=== PATIENT | male | born 1995 | race Caucasian/White ===

== ENCOUNTER 2018-06-05 19:09 | Inpatient (IN) | payer MEDICAID, SELFPAY ==
[2018-06-05 19:11] VITALS: BP 123/70; PULSE 90; RESP 16; TEMP 36.7; O2SAT 98; BMI 30.4
--- NOTE | 2018-06-05 19:59 | EKG12_ITS ---
Test Reason : SUBSTANCE ABUSE Blood Pressure : / mmHG Vent. Rate : 075 BPM Atrial Rate : 075 BPM P-R Int : 144 ms QRS Dur : 094 ms QT Int : 348 ms P-R-T Axes : 029 029 035 degrees QTc Int : 388 ms Normal sinus rhythm Normal ECG Confirmed by ABDIEL SOTO MD ([id number]), editor producer KAE TORRES ([id number] on 06/08/2018 3:18:15 PM Referred By: Susy Vazquez Confirmed By:ABDIEL SOTO MD
[2018-06-05] MEDS: Ondansetron ODT 4 MG Tablet PO (20:25)
[2018-06-05] MEDS: LORazepam 1 MG Tablet PO (20:25)
--- NOTE | 2018-06-05 20:27 | ED.VISSUMM ---
- ER Visit Summary Date of Service: 06/05/18 Chief Complaint: Detox History of Present Illness: The patient is a 22 M who presents requesting detox from heroin, Percocet, and Xanax. Patient states his last heroin use was 24 hours ago. His last Percocet and Xanax use were a couple days ago. Patient has been using regularly for the past 2 years. He states he spoke to someone from [facility] and was told to come to the ER after 5 PM this evening so it would be 24 hours after his last use. He reports body aches, mild nausea, with mild diarrhea. He states he is not able to sleep last night feels very jittery. Physical Examination: Vital signs are unremarkable. Patient sitting upright in bed no acute distress. Head neck examination normal. Heart is regular rate and rhythm. Lung sounds are clear. Abdomen is soft nontender. Neuro exam is normal. Test Results: CBC and chemistry studies are normal. EKG is sinus at 75 with no sign of ischemia. Tox screen is positive for opiates, cocaine, cannabinoids. EtOH is negative. Emergency Department Course and Treatment: CIWA-B was performed and he scores 40. Patient will allow blood draw but does not want an IV left in place. He is given p.o. Ativan and Zofran. Treatment Plan: [] Disposition: Admit Impression: Opiate and benzo withdrawal This note was generated with Photoblog dictation software. It may contain incorrect words, spelling, and punctuation that were not noted in review of the chart prior to signing ED Disposition - Plan for ED Patient: Chief Complaint: Substance Abuse Referrals: [facility] Doctor,Out of [Primary Care Provider] -
--- NOTE | 2018-06-05 20:31 | ED.DCSUM_ITS ---
- ER Visit Summary Date of Service: 06/05/18 Chief Complaint: Detox History of Present Illness: The patient is a 22 M who presents requesting detox from heroin, Percocet, and Xanax. Patient states his last heroin use was 24 hours ago. His last Percocet and Xanax use were a couple days ago. Patient has been using regularly for the past 2 years. He states he spoke to someone from [facility] and was told to come to the ER after 5 PM this evening so it would be 24 hours after his last use. He reports body aches, mild nausea, with mild diarrhea. He states he is not able to sleep last night feels very jittery. Physical Examination: Vital signs are unremarkable. Patient sitting upright in bed no acute distress. Head neck examination normal. Heart is regular rate and rhythm. Lung sounds are clear. Abdomen is soft nontender. Neuro exam is normal. Test Results: CBC and chemistry studies are normal. EKG is sinus at 75 with no sign of ischemia. Tox screen is positive for opiates, cocaine, cannabinoids. EtOH is negative. Emergency Department Course and Treatment: CIWA-B was performed and he scores 40. Patient will allow blood draw but does not want an IV left in place. He is given p.o. Ativan and Zofran. Treatment Plan: [] Disposition: Admit Impression: Opiate and benzo withdrawal This note was generated with EasyQasa dictation software. It may contain incorrect words, spelling, and punctuation that were not noted in review of the chart prior to signing ED Disposition - Plan for ED Patient: Chief Complaint: Substance Abuse Referrals: [facility] Doctor,Out of [Primary Care Provider] -
[2018-06-05 20:55] LABS: Absolute Lymphocyte Count 3.96 X10^3/ul (0.83-4.51); Absolute Neutrophil Count 5.4 X10^3/uL (2.0-7.7); Basophil# 0.04 X10^3/uL; Basophil% 0.4 % (0-1); Eosinophil# 0.08 X10^3/uL; Eosinophils% 0.8 % (0-5); Hemoglobin 13.8 g/dl (13.0-16.5); Lymphocyte # 3.96 X10^3/ul (4.0); Lymphocyte % 38.5 % (19-41); Mean Corp Hgb Conc 33.7 g/gl (32-36); Mean Corpuscular Hgb 30.5 pg (27.0-32.0); Mean Corpuscular Volume 90.7 fL (80-94); Monocyte# 0.82 X10^3/uL; Neutrophil # 5.37 X10^3/uL (2.7-7.7); Neutrophil % 52.2 % (47-70); Platelet Count 231 K/mm3 (150-450); RBC Distribution Width CV 12.5 % (11.6-14.6); RBC Distribution Width SD 41.6 fl (35.1-43.9); Red Blood Count 4.52 M/mm3 (4.6-6.2); White Blood Count 10.3 K/mm3 (4.4-11.0)
[2018-06-05 21:08] LABS: POSITIVE COUNT NO; POSITIVE DIFFERENTIAL NO; POSITIVE MORPHOLOGY NO
[2018-06-05 21:12] LABS: AST(SGOT) 15 U/L (15-37); Acetaminophen (Tylenol) Level < 2.0 ug/mL (10.0-30.0); Alanine Aminotransfer ALT/SGPT 19 U/L (16-61); Albumin, Serum 4.1 g/dL (3.2-5.0); Alkaline Phosphatase 63 U/L (45-117); Amphetamine Urine VISTA NEGATIVE (<1000 ng/mL); Anion Gap 8 (5-15); BUN 14 mg/dL (7-18); Barbiturate Urine VISTA NEGATIVE (< 200 ng/mL); Benzodiazepine Urine VISTA NEGATIVE (< 200 ng/mL); Calcium,Total 8.9 mg/dL (8.5-10.1); Chloride 104 mmol/L (98-107); Cocaine Urine VISTA POSITIVE (< 300 ng/mL); Creatinine, Serum 0.94 mg/dL (0.70-1.30); EST Glomerular Filtration Rate 105 mL/min (>60); Ecstacy Urine VISTA NEGATIVE (< 500 ng/mL); Est Glom Filt Rate - Afr Amer 127 mL/min (>60); Estimated Creatinine Clearance 129.06 ml/min; Globulin 3.9 g/dL (2.2-4.2); Glucose 92 mg/dL (74-106); Lipase 182 U/L (73-393); Methadone Urine VISTA NEGATIVE (< 300 ng/mL); PCP Urine VISTA NEGATIVE (< 25 ng/mL); Potassium 3.8 mmol/L (3.5-5.1); Sodium Level 139 mmol/L (136-145); THC Urine VISTA POSITIVE (< 50 ng/mL); Vista UDS pH Range 6
[2018-06-05 21:24] LABS: Alcohol, Blood (Medical)-Serum < 3.0 mg/dL
--- NOTE | 2018-06-05 21:39 | HP.PCM_ITS ---
Problem List (1) Heroin addiction Status: Acute (2) Benzodiazepine dependence Status: Acute History of Present Illness Date of Admission: 06/05/18 Chief Complaint: benzodiazepine and heroin withdrawal, for detox The patient is a 22 year old M with a history of heroin and benzodiazepine dependence. He was admitted to the ED on 06/05/2018 for heroin and benzodiazepine detox. He started using about 2 years ago when he started taking Percocets with his then girlfriend. This gradually progressed to using heroin. He uses 1 g daily and only snorts it. He states he uses Xanax pills periodically, about twice a week and he last used yesterday. He also was noted he went yesterday. He admits to some fever and chills, he denies any shortness of breath, chest pain, abdominal pain. He admits to palpitations and diarrhea. 12 point review of systems otherwise negative. In the ED, vitals were unremarkable and CBC in BMP were also unremarkable. He has been admitted to manage for heroin withdrawal and benzodiazepine addiction and is for detox through the [facility] program. [] Past Medical History Allergies amoxicillin Allergy (Verified 06/05/18 19:13) Rash Home Medications: Ambulatory Orders Medication Instructions Recorded Ibuprofen [Ibu] 400 mg PO Q6H PRN PRN 06/05/18 Surgical History: no surgical history Psychiatric History: No pertinent psych hx Lives: With Family Smoking Status: Current every day smoker Tobacco Use: Cigarettes Alcohol: Occasional Drugs: Heroin, Marijuana - *Family History Maternal History Items: No pertinent history Review of Systems Constitutional: Reports: Chills, Fever. Denies: Malaise, Weakness, Fatigue Eyes: Denies: Blurred vision HEENT: Denies: Head Aches, Sinus Congestion, Sinus Drainage Cardiovascular: Denies: Chest Pain, Chest Pressure, Edema, Palpitations Respiratory: Denies: Cough, Shortness of Breath, Shortness of breath at rest, Shortness of breath upon exertion, Sputum production, Wheezing Gastrointestinal: Reports: Diarrhea. Denies: Abdominal Pain, Constipation, Nausea, Vomiting Genitourinary: Denies: Dysuria Musculoskeletal: Denies: Joint Pain, Joint Tenderness Skin: Denies: Rash, Wounds Neurological: Denies: Numbness, Tingling, Focal weakness Psychiatric: Denies: Anxiety, Depression, Homicidal Ideations, Suicidal Ideations Hematologic/ Lymphatic: Denies: Easy Bruising, Easy Bleeding VTE Information - Inpt Only VTE Present on Admission: No VTE Mechan Device Prophylaxis: SCD's VTE Pharm Prophylaxis ordered?: No Patient Problems: Active and Suspected Problems Heroin addiction (Acute) Benzodiazepine dependence (Acute) - Physical Exam General: Alert, Oriented x3, Cooperative, No apparent distress HEENT: Atraumatic, PERRLA, EOMI, Normocephalic Oral: Moist Mucosa Neck: Supple, No JVD, Negative Carotid Bruits, Negative Hepatojugular Reflux, No Nodes Lungs: Clear to auscultation, Normal air movement, No rhonchi, No wheeze, No rales Cardiovascular: Regular rate, Regular Rhythm, Normal S1, Normal S2, No murmurs Abdomen: Bowel Sounds Present, Soft, Non Tender, Non-Distended, No Hepato-spl enomegaly Extremities: No clubbing, No cyanosis, No edema, Capillary Refill Less than 3 Seconds Skin: No rashes, No breakdown Musculoskeletal: No Tenderness to Palpation of Joints or Extremities Lymphatic: No Cervical, Supraclavicular, or Inguinal Adenopathy Neurological: Cranial nerves II-XII grossly intact, Neuro grossly intact, Motor Exam 5/5 strength throughout Psych/Mental Status: Normal Affect, Appropriate, Alert and oriented to time, place, person, mood and affect Vital Signs Temp Pulse Resp BP Pulse Ox 98.1 F 90 16 123/70 H 98 06/05/18 19:11 06/05/18 19:11 06/05/18 19:11 06/05/18 19:11 06/05/18 19:11 Oxygen Delivery Method Room Air Weight: 218 lb Body Mass Index (BMI) 30.4 Laboratory Tests Past 24 Hrs 06/05/18 06/05/18 06/05/18 20:15 20:15 20:15 WBC 10.3 RBC 4.52 L Hgb 13.8 Hct 41.0 MCV 90.7 MCH 30.5 MCHC 33.7 RDW 12.5 RDW Differential 41.6 Plt Count 231 MPV 10.0 Immature Gran % (Auto) 0.100 Neut % (Auto) 52.2 Lymph % (Auto) 38.5 [place] % (Auto) 8.0 Eos % (Auto) 0.8 Baso % (Auto) 0.4 Absolute Neuts (auto) 5.4 Absolute Lymphs (auto) 3.96 Total Counted Not Reportable Sodium 139 Potassium 3.8 Chloride 104 Carbon Dioxide 27.0 Anion Gap 8 BUN 14 Creatinine 0.94 Estim Creat Clear Calc 129.06 Est GFR (MDRD) Af Amer 127 Est GFR (MDRD) Non-Af 105 BUN/Creatinine Ratio 15.0 Glucose 92 Calcium 8.9 Total Bilirubin 0.60 Direct Bilirubin 0.10 AST 15 ALT 19 Alkaline Phosphatase 63 Total Protein 8.0 Albumin 4.1 Globulin 3.9 Lipase 182 Urine Opiates Screen Urine Methadone Screen Acetaminophen Ur Barbiturates Screen Ur Phencyclidine Scrn Ur Amphetamines Screen U Methamphetamin-MDMA U Benzodiazepines Scrn Urine Cocaine Screen U Cannabinoids Screen Ur Drug Screen Comment Ethyl Alcohol < 3.0 06/05/18 06/05/18 20:15 20:15 WBC RBC Hgb Hct MCV MCH MCHC RDW RDW Differential Plt Count MPV Immature Gran % (Auto) Neut % (Auto) Lymph % (Auto) [place] % (Auto) Eos % (Auto) Baso % (Auto) Absolute Neuts (auto) Absolute Lymphs (auto) Total Counted Sodium Potassium Chloride Carbon Dioxide Anion Gap BUN Creatinine Estim Creat Clear Calc Est GFR (MDRD) Af Amer Est GFR (MDRD) Non-Af BUN/Creatinine Ratio Glucose Calcium Total Bilirubin Direct Bilirubin AST ALT Alkaline Phosphatase Total Protein Albumin Globulin Lipase Urine Opiates Screen POSITIVE H Urine Methadone Screen NEGATIVE Acetaminophen < 2.0 L Ur Barbiturates Screen NEGATIVE Ur Phencyclidine Scrn NEGATIVE Ur Amphetamines Screen NEGATIVE U Methamphetamin-MDMA NEGATIVE U Benzodiazepines Scrn NEGATIVE Urine Cocaine Screen POSITIVE H U Cannabinoids Screen POSITIVE H Ur Drug Screen Comment Ethyl Alcohol Assessment/Plan All Active Problems Heroin addiction (Acute) Benzodiazepine dependence (Acute) 22 y/o male presenting with a history of opiate and benzodiazepine addiction, presenting for detox 1. Heroin withdrawal, for detox * complains of diarrhea, and some subjective fever and chills * CINA score was 40 in ED * admit to Med Surg * opiate withdrawal protocol with librium, as it will also cover benzodiazepine detox * monitor CINA score * urine tox positive for cannabinoids and marijuana * 2. Benzodiazepine dependence, for detox * takes xanax pills ~ twice weekly; last used yesterday * benzodiazepine withdrawal protocol with librium * 3. DVT prophylaxis: SCDs. encourage ambulation Disposition: Wants to continue with outpatient rehab after he completes the 3- day detox process. Patient lives in [place] and so will prefer a facility close to [place]. To discuss with [facility] about facilities closer to patient. Code status: full code. Code Visit Inpatient E&M: 34854 Init Hosp L3
[2018-06-05 21:52] VITALS: BP 133/69; PULSE 87; RESP 17; O2SAT 98
[2018-06-05 23:20] VITALS: BMI 29.2; BMI 29.3
[2018-06-05 23:43] VITALS: BP 138/79; PULSE 83; RESP 16; TEMP 37.1; O2SAT 98
[2018-06-06] VITALS (10 sets, daily range): BP systolic 114–133; BP diastolic 62–79; PULSE 74–94; RESP 16–18; TEMP 36.5–36.9; O2SAT 97–99
[2018-06-06] MEDS: chlordiazePOXIDE 25 MG Capsule PO ×3 (05:05→16:20)
[2018-06-06] MEDS: Gabapentin 300 MG Capsule PO ×3 (05:05→21:05)
--- NOTE | 2018-06-06 09:53 | PCM.PN.HOSP ---
Patient Problems: Active and Suspected Problems Heroin addiction (Acute) Benzodiazepine dependence (Acute) Subjective: Patient is a 22-year-old gentleman with history of polysubstance abuse including heroin, benzos, cocaine as well as marijuana admitted with acute opiate withdrawal. Patient has been admitted to regular nursing floor where he is currently undergoing medical stabilization 06/06/2018: Patient seen complains of bilateral leg cramps in addition to abdominal cramps. Objective: GENERAL: cooperative HEENT: Atraumatic; moist oral mucosa EYES; Anicteric, Normal Conjunctiva NECK; supple, normal thyroid, no distended JVD. RESPIRATORY: Diminished to auscultation bilaterally, CARDIOVASCULAR: Regular S1 S2, no audible murmurs GI: soft, non-tender, normoactive bowel sounds, : No Renal angle tenderness; EXTREMITIES: No edema, no clubbing, no cyanosis. MUSCULOSKELETAL: No Joint Tenderness; no muscle waisting NEURO: Awake; no lateralizing signs. SKIN: No Rash; tattoos on upper extremities PSYCH; Normal affect Vitals/I&O's: Vital Signs Temp Pulse Resp BP Pulse Ox 98.1 F 85 16 122/79 H 99 06/06/18 05:06 06/06/18 05:06 06/06/18 05:06 06/06/18 05:06 06/06/18 05:06 Oxygen Delivery Method Room Air Weight: 95.3 kg Body Mass Index (BMI) 29.2 Intake and Output for Last 24 Hours 06/04/18 06/05/18 06/06/18 23:59 23:59 23:59 Intake Total 705 / 705 Balance 705 / 705 Laboratory Results 06/05/18 20:15: WBC 10.3, RBC 4.52 L, Hgb 13.8, Hct 41.0, MCV 90.7, MCH 30.5, MCHC 33.7, RDW 12.5, RDW Differential 41.6, Plt Count 231, MPV 10.0, Immature Gran % (Auto) 0.100, Neut % (Auto) 52.2, Lymph % (Auto) 38.5, [place] % (Auto) 8.0, Eos % (Auto) 0.8, Baso % (Auto) 0.4, Absolute Neuts (auto) 5.4, Absolute Lymphs (auto) 3.96, Total Counted Not Reportable 06/05/18 20:15: Sodium 139, Potassium 3.8, Chloride 104, Carbon Dioxide 27.0, Anion Gap 8, BUN 14, Creatinine 0.94, Estim Creat Clear Calc 129.06, Est GFR (MDRD) Af Amer 127, Est GFR (MDRD) Non-Af 105, BUN/Creatinine Ratio 15.0, Glucose 92, Calcium 8.9, Total Bilirubin 0.60, Direct Bilirubin 0.10, AST 15, ALT 19, Alkaline Phosphatase 63, Total Protein 8.0, Albumin 4.1, Globulin 3.9, Lipase 182 06/05/18 20:15: Ethyl Alcohol < 3.0 06/05/18 20:15: Acetaminophen < 2.0 L 06/05/18 20:15: Urine Opiates Screen POSITIVE H, Urine Methadone Screen NEGATIVE, Ur Barbiturates Screen NEGATIVE, Ur Phencyclidine Scrn NEGATIVE, Ur Amphetamines Screen NEGATIVE, U Methamphetamin-MDMA NEGATIVE, U Benzodiazepines Scrn NEGATIVE, Urine Cocaine Screen POSITIVE H, U Cannabinoids Screen POSITIVE H, Ur Drug Screen Comment Current Medications Chlordiazepoxide (Librium) 50 mg PO Q6H IBIS; Taper Stop: 06/09/18 00:14 Last Admin: 06/06/18 05:05 Dose: 50 mg Dicyclomine HCl (Bentyl) 20 mg PO Q6H PRN PRN PRN Reason: Abdomnial Discomfort Gabapentin (Neurontin) 300 mg PO Q8 IBIS Last Admin: 06/06/18 05:05 Dose: 300 mg Hydroxyzine Pamoate (Vistaril Pamoate Capsule) 50 mg PO Q6H PRN PRN PRN Reason: Mild Anxiety Ibuprofen (Motrin) 400 mg PO Q6H PRN PRN PRN Reason: PAIN Influenza Virus Vaccine Quadrival (Fluarix/Fluzone) 0.5 ml IM .ONCE ONE Stop: 06/06/18 10:01 Lorazepam (Ativan) 1 mg PO Q4H PRN PRN PRN Reason: ANXIETY Magnesium Hydroxide (Milk Of Magnesia) 30 ml PO DAILY PRN PRN PRN Reason: Constipation Methocarbamol (Methocarbamol) 750 mg PO Q6H PRN PRN PRN Reason: Muscle Aches Pramipexole Dihydrochloride (Mirapex) 0.25 mg PO Q12H PRN PRN PRN Reason: Restless Legs Medical Necessity - Tobacco Use Smoking Status: Current every day smoker Tobacco Use: Cigarettes Assessment/Plan All Active Problems Heroin addiction (Acute) Benzodiazepine dependence (Acute) Patient is a 22-year-old gentleman with history of polysubstance abuse including heroin, benzos, cocaine as well as marijuana admitted with acute opiate withdrawal. Patient has been admitted to regular nursing floor where he is currently undergoing medical stabilization 1. Acute opioid withdrawal patient has been admitted to regular nursing floor for medical stabilization using Subutex 2. Chronic benzo use: Patient was placed on Librium as needed for withdrawal 3. Polysubstance abuse including marijuana, Xanax, and heroin. Patient denies using cocaine he believes his hearing might have been contaminated with cocaine 4. Depression with anxiety 5. DVT prophylaxis low risk did encourage early ambulation Code Visit Inpatient E&M: 01022 [facility] Hosp L3
[2018-06-06] MEDS: LORazepam 1 MG Tablet PO ×2 (10:23→21:05)
[2018-06-06] MEDS: Methocarbamol 750 MG Tablet PO (10:23)
[2018-06-06] MEDS: Buprenorphine HCl 2 MG TAB.SUBL SL ×2 (10:23→17:34)
[2018-06-06] MEDS: Dicyclomine 10 MG Capsule 20 MG PO (13:38)
[2018-06-06] MEDS: cloNIDine HCl 0.1 MG Tablet PO (13:38)
[2018-06-06] MEDS: Ibuprofen 400 MG Tablet PO (20:19)
[2018-06-07] VITALS (8 sets, daily range): BP systolic 100–121; BP diastolic 56–81; PULSE 60–87; RESP 16–18; TEMP 36.3–36.6; O2SAT 95–100
[2018-06-07] MEDS: Buprenorphine HCl 2 MG TAB.SUBL SL ×3 (01:06→17:46)
[2018-06-07] MEDS: chlordiazePOXIDE 25 MG Capsule PO ×3 (01:06→16:25)
[2018-06-07] MEDS: cloNIDine HCl 0.1 MG Tablet PO (01:14)
[2018-06-07] MEDS: Gabapentin 300 MG Capsule PO ×3 (06:48→23:01)
--- NOTE | 2018-06-07 07:51 | PCM.PN.HOSP ---
Patient Problems: Active and Suspected Problems Heroin addiction (Acute) Benzodiazepine dependence (Acute) Subjective: Patient seen complains of less abdominal and leg cramps. Plan is for patient to be evaluated on 06/08/2018 by Doug Tyler for possible referral for subsequent outpatient treatment Objective: GENERAL: cooperative HEENT: Atraumatic; moist oral mucosa EYES; Anicteric, Normal Conjunctiva NECK; supple, normal thyroid, no distended JVD. RESPIRATORY: Diminished to auscultation bilaterally, CARDIOVASCULAR: Regular S1 S2, no audible murmurs GI: soft, non-tender, normoactive bowel sounds, : No Renal angle tenderness; EXTREMITIES: No edema, no clubbing, no cyanosis. MUSCULOSKELETAL: No Joint Tenderness; no muscle waisting NEURO: Awake; no lateralizing signs. SKIN: No Rash; tattoos on upper extremities PSYCH; Normal affect Vitals/I&O's: Vital Signs Temp Pulse Resp BP Pulse Ox 97.4 F L 60 16 102/56 L 99 06/07/18 06:46 06/07/18 06:46 06/07/18 06:46 06/07/18 06:46 06/06/18 17:32 Oxygen Delivery Method Room Air Weight: 95.3 kg Body Mass Index (BMI) 29.2 Intake and Output for Last 24 Hours 06/05/18 06/06/18 06/07/18 23:59 23:59 23:59 Intake Total 1425 / 1425 750 / 750 Balance 1425 / 1425 750 / 750 Current Medications Buprenorphine HCl (Buprenorphine Hcl) 4 mg SL Q8H IBIS; Taper Stop: 06/09/18 13:59 Last Admin: 06/07/18 01:06 Dose: 4 mg Chlordiazepoxide (Librium) 50 mg PO Q8H IBIS; Taper Stop: 06/09/18 00:14 Last Admin: 06/07/18 01:06 Dose: 50 mg Clonidine (Catapres) 0.1 mg PO Q2H PRN PRN PRN Reason: Hot/Cold Sweats or Anxiety Last Admin: 06/07/18 01:14 Dose: 0.1 mg Dicyclomine HCl (Bentyl) 20 mg PO Q6H PRN PRN PRN Reason: Abdomnial Discomfort Last Admin: 06/06/18 13:38 Dose: 20 mg Gabapentin (Neurontin) 300 mg PO Q8 IBIS Last Admin: 06/07/18 06:48 Dose: 300 mg Hydroxyzine Pamoate (Vistaril Pamoate Capsule) 50 mg PO Q6H PRN PRN PRN Reason: Mild Anxiety Ibuprofen (Motrin) 400 mg PO Q6H PRN PRN PRN Reason: PAIN Last Admin: 06/06/18 20:19 Dose: 400 mg Lorazepam (Ativan) 1 mg PO Q4H PRN PRN PRN Reason: ANXIETY Last Admin: 06/06/18 21:05 Dose: 1 mg Magnesium Hydroxide (Milk Of Magnesia) 30 ml PO DAILY PRN PRN PRN Reason: Constipation Methocarbamol (Methocarbamol) 750 mg PO Q6H PRN PRN PRN Reason: Muscle Aches Last Admin: 06/06/18 10:23 Dose: 750 mg Pramipexole Dihydrochloride (Mirapex) 0.25 mg PO Q12H PRN PRN PRN Reason: Restless Legs Medical Necessity - Tobacco Use Smoking Status: Current every day smoker Tobacco Use: Cigarettes Assessment/Plan All Active Problems Heroin addiction (Acute) Benzodiazepine dependence (Acute) Patient is a 22-year-old gentleman with history of polysubstance abuse including heroin, benzos, cocaine as well as marijuana admitted with acute opiate withdrawal. Patient has been admitted to regular nursing floor where he is currently undergoing medical stabilization 1. Acute opioid withdrawal patient has been admitted to regular nursing floor for medical stabilization using Subutex 2. Chronic benzo use: Patient was placed on Librium as needed for withdrawal 3. Polysubstance abuse including marijuana, Xanax, and heroin. Patient denies using cocaine he believes his heroin might have been contaminated with cocaine 4. Depression with anxiety 5. DVT prophylaxis low risk did encourage early ambulation Code Visit Inpatient E&M: 21724 Subs Hosp L2
[2018-06-07] MEDS: Methocarbamol 750 MG Tablet PO ×3 (08:41→23:04)
[2018-06-07] MEDS: Ibuprofen 400 MG Tablet PO (13:51)
[2018-06-08 01:14] VITALS: BP 135/61; PULSE 90; RESP 16; TEMP 37
[2018-06-08] MEDS: chlordiazePOXIDE 25 MG Capsule PO ×2 (01:17→07:58)
[2018-06-08] MEDS: Buprenorphine HCl 2 MG TAB.SUBL SL ×2 (01:17→13:19)
[2018-06-08] MEDS: Gabapentin 300 MG Capsule PO (06:40)
[2018-06-08] MEDS: Methocarbamol 750 MG Tablet PO (06:42)
[2018-06-08 07:53] VITALS: BP 122/66; PULSE 85; RESP 16; TEMP 36.7; O2SAT 97
[2018-06-08 11:23] VITALS: RESP 16
--- NOTE | 2018-06-08 12:52 | PCM.PN.HOSP ---
Patient Problems: Active and Suspected Problems Heroin addiction (Acute) Benzodiazepine dependence (Acute) Subjective: Still with myalgias and arthralgias. Vitals/I&O's: Vital Signs Temp Pulse Resp BP Pulse Ox 36.7 C 85 16 122/66 H 97 06/08/18 07:53 06/08/18 07:53 06/08/18 11:23 06/08/18 07:53 06/08/18 07:53 Oxygen Delivery Method Room Air Weight: 95.3 kg Body Mass Index (BMI) 29.2 Intake and Output for Last 24 Hours 06/06/18 06/07/18 06/08/18 23:59 23:59 23:59 Intake Total 1425 / 1425 1840 / 1840 120 / 120 Balance 1425 / 1425 1840 / 1840 120 / 120 General: Alert, Cooperative, No apparent distress HEENT: Atraumatic, Normocephalic Neurological: Gait narrow based and stable Psych/Mental Status: Normal Affect, Appropriate Current Medications Buprenorphine HCl (Buprenorphine Hcl) 2 mg SL Q12H IBIS; Taper Stop: 06/09/18 13:59 Last Admin: 06/08/18 01:17 Dose: 2 mg Clonidine (Catapres) 0.1 mg PO Q2H PRN PRN PRN Reason: Hot/Cold Sweats or Anxiety Last Admin: 06/07/18 01:14 Dose: 0.1 mg Dicyclomine HCl (Bentyl) 20 mg PO Q6H PRN PRN PRN Reason: Abdomnial Discomfort Last Admin: 06/06/18 13:38 Dose: 20 mg Hydroxyzine Pamoate (Vistaril Pamoate Capsule) 50 mg PO Q6H PRN PRN PRN Reason: Mild Anxiety Ibuprofen (Motrin) 400 mg PO Q6H PRN PRN PRN Reason: PAIN Last Admin: 06/07/18 13:51 Dose: 400 mg Lorazepam (Ativan) 1 mg PO Q4H PRN PRN PRN Reason: ANXIETY Last Admin: 06/06/18 21:05 Dose: 1 mg Magnesium Hydroxide (Milk Of Magnesia) 30 ml PO DAILY PRN PRN PRN Reason: Constipation Methocarbamol (Methocarbamol) 750 mg PO Q6H PRN PRN PRN Reason: Muscle Aches Last Admin: 06/08/18 06:42 Dose: 750 mg Nicotine Polacrilex (Rugby Nicotine (Bkc)) 2 mg PO Q2H PRN PRN PRN Reason: nicotine cravings Pramipexole Dihydrochloride (Mirapex) 0.25 mg PO Q12H PRN PRN PRN Reason: Restless Legs Medical Necessity - Tobacco Use Smoking Status: Current every day smoker Tobacco Use: Cigarettes Assessment/Plan All Active Problems Heroin addiction (Acute) Benzodiazepine dependence (Acute) 1. acute opiate withdrawal pt to have his last dose of Subutex this afternoon, then he will be discharged [facility] has facilitated an oupt program that will begin in 1 week. Patient informed that he will not be receiving any Rx from here. 2. BZD abuse reportedly does not take daily DC Librium
--- NOTE | 2018-06-08 12:55 | PN_ITS ---
Patient Problems: Active and Suspected Problems Heroin addiction (Acute) Benzodiazepine dependence (Acute) Subjective: Still with myalgias and arthralgias. Vitals/I&O's: Vital Signs Temp Pulse Resp BP Pulse Ox 36.7 C 85 16 122/66 H 97 06/08/18 07:53 06/08/18 07:53 06/08/18 11:23 06/08/18 07:53 06/08/18 07:53 Oxygen Delivery Method Room Air Weight: 95.3 kg Body Mass Index (BMI) 29.2 Intake and Output for Last 24 Hours 06/06/18 06/07/18 06/08/18 23:59 23:59 23:59 Intake Total 1425 / 1425 1840 / 1840 120 / 120 Balance 1425 / 1425 1840 / 1840 120 / 120 General: Alert, Cooperative, No apparent distress HEENT: Atraumatic, Normocephalic Neurological: Gait narrow based and stable Psych/Mental Status: Normal Affect, Appropriate Current Medications Buprenorphine HCl (Buprenorphine Hcl) 2 mg SL Q12H IBIS; Taper Stop: 06/09/18 13:59 Last Admin: 06/08/18 01:17 Dose: 2 mg Clonidine (Catapres) 0.1 mg PO Q2H PRN PRN PRN Reason: Hot/Cold Sweats or Anxiety Last Admin: 06/07/18 01:14 Dose: 0.1 mg Dicyclomine HCl (Bentyl) 20 mg PO Q6H PRN PRN PRN Reason: Abdomnial Discomfort Last Admin: 06/06/18 13:38 Dose: 20 mg Hydroxyzine Pamoate (Vistaril Pamoate Capsule) 50 mg PO Q6H PRN PRN PRN Reason: Mild Anxiety Ibuprofen (Motrin) 400 mg PO Q6H PRN PRN PRN Reason: PAIN Last Admin: 06/07/18 13:51 Dose: 400 mg Lorazepam (Ativan) 1 mg PO Q4H PRN PRN PRN Reason: ANXIETY Last Admin: 06/06/18 21:05 Dose: 1 mg Magnesium Hydroxide (Milk Of Magnesia) 30 ml PO DAILY PRN PRN PRN Reason: Constipation Methocarbamol (Methocarbamol) 750 mg PO Q6H PRN PRN PRN Reason: Muscle Aches Last Admin: 06/08/18 06:42 Dose: 750 mg Nicotine Polacrilex (Rugby Nicotine (Bkc)) 2 mg PO Q2H PRN PRN PRN Reason: nicotine cravings Pramipexole Dihydrochloride (Mirapex) 0.25 mg PO Q12H PRN PRN PRN Reason: Restless Legs Medical Necessity - Tobacco Use Smoking Status: Current every day smoker Tobacco Use: Cigarettes Assessment/Plan All Active Problems Heroin addiction (Acute) Benzodiazepine dependence (Acute) 1. acute opiate withdrawal * pt to have his last dose of Subutex this afternoon, then he will be discharged * [facility] has facilitated an oupt program that will begin in 1 week. * Patient informed that he will not be receiving any Rx from here. 2. BZD abuse * reportedly does not take daily * KATARINA Mcfarland
--- NOTE | 2018-06-08 12:57 | PCM.DC ---
- Discharge Diagnoses Current Active Problems: Current Active and Chronic Problems Heroin addiction (Acute) Benzodiazepine dependence (Acute) You will use the following diet at home:: No restrictions Your food should be the consistency of: Regular Your liquids should be the consistency of: Regular/Thin Discharge Activity: Return to Normal Activity Allergies/Adverse Reactions: Allergies amoxicillin Allergy (Verified 06/05/18 19:13) Rash Medications to take at Discharge Acetaminophen 500 - 1,000 mg PO Q8H PRN #1 tablet 06/08/18 The following prescriptions were given: Acetaminophen 500 - 1,000 mg PO Q8H PRN #1 tablet PRN Reason: Pain Primary Care Physician: [facility] ,Out of [Primary Care Provider] - Test Results: Test results from this visit will be discussed in further detail at your follow-up appointment, if applicable. Proposed Discharge Date: 06/08/18
--- NOTE | 2018-06-08 12:58 | PCM.DC.SUM ---
Discharge Date and Diagnosis - Problem List Patient Problems: Active and Suspected Problems Heroin addiction (Acute) Benzodiazepine dependence (Acute) Date of Admission: 06/05/18 Date of Discharge: 06/08/18 - Primary Discharge Diagnosis Active and Suspected Problems Heroin addiction (Acute) Benzodiazepine dependence (Acute) Hospital Course and Treatment Operations: None Procedures: None Summary of Care Provided: The patient is a 22 year old M presents with acute opiate withdrawal. Patient was started on Subutex as well as other agents to help with other somatic complaints. Patient's course was uncomplicated and otherwise has done well. Patient also presented with benzodiazepine use as well. Patient endorsed that he did not take it daily. A review of his [place] did not reveal any active prescriptions. Patient will receive a Subutex Ceftin and then be discharged. Patient has an outpatient follow-up facilitated by Doug Tyler. [] Patient Problems: Active and Suspected Problems Heroin addiction (Acute) Benzodiazepine dependence (Acute) - Physical Exam Vital Signs Temp Pulse Resp BP Pulse Ox 36.7 C 85 16 122/66 H 97 06/08/18 07:53 06/08/18 07:53 06/08/18 11:23 06/08/18 07:53 06/08/18 07:53 Oxygen Delivery Method Room Air Weight: 95.3 kg Body Mass Index (BMI) 29.2 Intake and Output for Last 24 Hours 06/06/18 06/07/18 06/08/18 23:59 23:59 23:59 Intake Total 1425 / 1425 1840 / 1840 120 / 120 Balance 1425 / 1425 1840 / 1840 120 / 120 Discharge Diet: No Restrictions Discharge Activity: Return to Normal Activity Home Medications: Medications to take at Discharge Acetaminophen 500 - 1,000 mg PO Q8H PRN #1 tablet 06/08/18 Following Prescrptions Were Given to Patient: Acetaminophen 500 - 1,000 mg PO Q8H PRN #1 tablet PRN Reason: Pain Primary Care Physician: Benny Dalton,Out of [Primary Care Provider] - Disposition: Home Minutes spent on discharge:: 32 Patient Condition:: Good Medical Necessity - Tobacco Use Smoking Status: Current every day smoker Tobacco Use: Cigarettes Meaningful Use Info Meaningful Use Diagnoses (Choose all that apply): None applicable Code Visit Inpatient E&M: 02425 Disch Hosp
[2018-06-08] MEDS: Nicotine Polacrilex 2 MG GUM PO ×2 (13:20→15:49)
[2018-06-08] MEDS: Ibuprofen 400 MG Tablet PO (13:22)
[2018-06-08 13:53] VITALS: BP 143/71; PULSE 87; RESP 16; TEMP 36.6; O2SAT 97
[2018-06-08] MEDS: LORazepam 1 MG Tablet PO (15:49)
== END 2018-06-08 16:10 | disposition home or self-care (01) | DRG 773 ==
LOC: ED 20:36 → MS3 22:33
PROVIDERS: Admitting Provider Student in an Organized Health Care Education/Training Program; Emergency Provider Emergency Medicine; Referring Provider Student in an Organized Health Care Education/Training Program
DX: F11.23 Opioid dependence with withdrawal (principal); F17.210 Nicotine dependence, cigarettes, uncomplicated; F13.20 Sedative, hypnotic or anxiolytic dependence, uncomplicated
CPT/HCPCS: 80048; 80076; 80307; 80320; 80329; 83690; 85025; 93005; 99282; 99406; A4216; G0480